=== PATIENT | male | born 1985 | race Caucasian/White ===

== ENCOUNTER 2022-06-19 18:48 | Emergency (ER) | payer SELFPAY ==
[~2022-06-19] VITALS: Ht 160 cm; Wt 76.2 kg
[2022-06-19 18:51] VITALS: BP 160/121
--- NOTE | 2022-06-19 19:10 | NUR ---
Dr. Couch examining patient.
--- NOTE | 2022-06-19 19:28 | NUR ---
XRAY AT BEDSIDE
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
[2022-06-19 21:15] VITALS: BP 160/121
--- NOTE | 2022-06-19 21:15 | NUR ---
Patient D/C to custody.
== END 2022-06-19 21:15 ==
LOC: MED 18:48
DX: R06.02 Shortness of breath (principal); I10 Essential (primary) hypertension; F17.210 Nicotine dependence, cigarettes, uncomplicated; Z02.89 Encounter for other administrative examinations; Z88.0 Allergy status to penicillin; Z90.49 Acquired absence of other specified parts of digestive tract; V49.9XXA Car occupant (driver) (passenger) injured in unspecified traffic accident, initial encounter; Y93.89 Activity, other specified; Y92.89 Other specified places as the place of occurrence of the external cause; Y99.8 Other external cause status
CPT/HCPCS: 71045; 99283